=== PATIENT | female | born 1960 | race Caucasian/White ===

== ENCOUNTER 2023-11-13 13:56 | Emergency (ER) | payer OTHER ==
[2023-11-13 14:10] VITALS: PULSE 66
[2023-11-13] MEDS: fentaNYL 100 MCG/2 ML SDV IVPUSH STA ×2 (14:44→16:05)
[2023-11-13] MEDS: Sodium Chloride 0.9% 1,000 ML IV SCH (14:44)
[2023-11-13 14:59] LABS: BASOPHILS ABSOLUTE AUTO 0.1 K/mm3 (0.0-0.2); BASOPHILS PERCENT AUTO 0.7 % (0.0-1.0); EOSINOPHILS ABSOLUTE AUTO 0.1 K/mm3 (0.0-0.4); EOSINOPHILS PERCENT AUTO 0.8 % (0.0-6.0); HEMATOCRIT 36.5 % (37.0-47.0); HEMOGLOBIN 12.5 gm/dl (12.0-16.0); IMMATURE GRAN ABSOLUTE AUTO 0.02 K/mm3 (0.00-0.05); IMMATURE GRAN PERCENT AUTO 0.2 % (0.0-0.4); LYMPHOCYTES ABSOLUTE AUTO 2.4 K/mm3 (1.0-4.8); LYMPHOCYTES PERCENT AUTO 28.1 % (24.0-44.0); MEAN CORPUSCULAR HEMOGLOBIN 30.6 pg (28.0-32.0); MEAN CORPUSCULAR HGB CONC 34.2 g/dl (32.0-36.0); MEAN CORPUSCULAR VOLUME 89.5 fl (83.0-99.0); MEAN PLATELET VOLUME 9.5 fl (9.4-12.3); MONOCYTES ABSOLUTE AUTO 0.7 K/mm3 (0.0-0.8); MONOCYTES PERCENT AUTO 8.6 % (0.0-8.0); NEUTROPHILS ABSOLUTE AUTO 5.2 K/mm3 (1.8-7.7); NEUTROPHILS PERCENT AUTO 61.6 % (41.0-71.0); PLATELET COUNT,PLT 298 K/mm3 (150-400); RED BLOOD CELL COUNT 4.08 M/mm3 (4.10-5.30); WHITE BLOOD CELL COUNT,WBC 8.37 K/mm3 (3.9-11.3)
[2023-11-13] MEDS: Sodium Chloride 0.9% 10 ML Syringe FLUSH PRN (15:03)
[2023-11-13] MEDS ORDERED: Sodium Chloride 0.9% 1,000 ML IV SCH (15:15)
[2023-11-13] MEDS: Sodium Chloride 0.9% 10 ML Syringe FLUSH ONE (15:31)
[2023-11-13 15:38] LABS: A/G RATIO 1.1 (1-2); ALBUMIN 3.8 g/dl (3.4-5.0); ANION GAP 14.8 (5-15); BILIRUBIN TOTAL 0.3 mg/dL (0.2-1.0); CALCIUM 8.9 mg/dL (8.5-10.1); EST CRCL DRUG DOSING (CG) 51.02 mL/min; POTASSIUM,K 3.8 mEq/L (3.5-5.1); PROTEIN TOTAL,TP 7.2 g/dl (6.4-8.2)
[2023-11-13 15:40] LABS: LACTIC ACID 0.6 mmol/L (0.4-2.0)
[2023-11-13] MEDS: Iopamidol 612 MG/ML 100 ML Bottle IVPUSH ONE (15:44)
[2023-11-13] MEDS: Ondansetron 4 MG/2 ML SDV IVPUSH ONE (16:05)
[2023-11-13] MEDS: Lactated Ringers 1,000 ML IV ONE (16:14)
[2023-11-13 16:26] LABS: APPEARANCE,URINE CLEAR (Clear); BILIRUBIN,URINE NEGATIVE (Negative); COLOR,URINE YELLOW (Yellow); GLUCOSE,URINE NEGATIVE (Negative); KETONES,URINE NEGATIVE (Negative); LEUKOCYTE ESTERASE,URINE NEGATIVE (Negative); NITRITE,URINE NEGATIVE (Negative); OCCULT BLOOD,URINE NEGATIVE (Negative); PROTEIN,URINE NEGATIVE (Negative); UROBILINOGEN,URINE 0.2 (0.2-1.0)
[2023-11-13 16:28] LABS: CHOLESTEROL HDL 73 mg/dL (40-59); CHOLESTEROL LDL DIRECT 73 mg/dL (<100); CHOLESTEROL TOTAL 185 mg/dL (<200); TRIGLYCERIDES 130 mg/dL (<150)
[2023-11-13] MEDS: Ketorolac 30 MG/ML SDV IVPUSH ONE (17:58)
[2023-11-13 20:10] VITALS: BP 142/87
== END 2023-11-13 18:05 | disposition home or self-care (01) ==
LOC: JD.ED 13:56
DX: K59.00 Constipation, unspecified (principal); M54.50 Low back pain, unspecified; I10 Essential (primary) hypertension; Z79.899 Other long term (current) drug therapy
CPT/HCPCS: 36415; 74177; 80053; 80061; 81003; 83605; 83690; 85025; 86140; 96361; 96374; 96375; 96376; 99284; J1885; J2405; J3010; J3490; J7030; J7120; Q9967